=== PATIENT | male | born 1975 | race Caucasian/White ===

== ENCOUNTER 2016-08-15 21:15 | Emergency (ER) | payer OTHER ==
[2016-08-15 21:30] VITALS: BP 147/79; PULSE 67; TEMP 98.2; BMI 24.3
--- NOTE | 2016-08-15 23:14 | PDOC ---
History of Present Illness - General Chief Complaint: Injury Stated Complaint: CUT LEFT FINGER WITH HEDGETRIPPER Time Seen by Provider: 08/15/16 21:22 - History of Present Illness Initial Comments: This otherwise healthy 40-year-old man presents with an injury to his left index finger. Just prior to presentation, the patient accidentally cut the tip of his left index finger with electric cargo trimmer. Patient states that he cleansed the wound with material in first aid kit at home. Bleeding was controlled with direct pressure against the wound. No other injury sustained. Patient states that his last tetanus prophylaxis was greater than 20 years ago. Patient has no previous history of poor wound healing or resistant organism colonization/infection. Patient has ALLERGY to amoxicillin: He states that this occurred while using on child and believes that he had a rash Past History - Past Medical History Allergies/Adverse Reactions: Allergies Allergy/AdvReac Type Severity Reaction Status Date / Time amoxicillin Allergy Verified 08/15/16 21:17 Home Medications: Ambulatory Orders Cephalexin Monohydrate [Keflex -] 500 mg PO Q6H #20 capsule 08/15/16 Other medical history: DENIES - Immunization History Immunization Up to Date: No - Psycho/Social/Smoking Cessation Hx Anxiety: No Suicidal Ideation: No Smoking History: Never smoked Have you smoked in the past 12 months: No Information on smoking cessation initiated: No Hx Alcohol Use: No Drug/Substance Use Hx: No Substance Use Type: None Review of Systems - Review of Systems Able to Perform ROS?: Yes Comments:: 12 point review of systems is negative except for what is noted in the history of present illness *Physical Exam - Vital Signs Last Vital Signs Temp Pulse Resp BP Pulse Ox 98.2 F 67 16 147/79 100 08/15/16 21:19 08/15/16 21:19 08/15/16 21:19 08/15/16 21:19 08/15/16 21:19 - Physical Exam Comments: GENERAL: Adult male, alert and oriented 3 in no acute distress . EXTREMITIES: Left index finger1.5 cm full-thickness curvilinear laceration extending from the proximal radial aspect of nail to mid palmar phalanx No nail involvement present; laceration is not bleeding currently fingertip is warm and dry with excellent capillary refill; motor and sensory functioning and digit is intact Remainder of the extremity exam is normal NEUROLOGICAL: Cranial nerves II through XII grossly intact. Normal speech. No focal neurologic deficits MUSCULOSKELETAL: Back non-tender to palpation, no CVA tenderness SKIN: Warm, Dry, normal turgor, no rashes noted. Procedures - Laceration/Wound Repair Left Distal 2nd digit Wound Length: to 2.5 cm Wound Explored: clean Wound's Depth, Shape: flap Irrigated w/ Saline: Yes Betadine Prep: No (Hibiclens/) Anesthesia: 1% Lidocaine (ethanol) Amount of Anesthetic (ccs): 1 Wound Debrided: none Wound Repaired With: Sutures Suture Size/Type: 5:0 Number of Deep Layer Sutures: 5 Sterile Dressing Applied: Yes Splint Applied: No Sling Applied: No Progress: Distal phalanx of the left index finger prepped using Hibiclens/ethanol. 1 mL of 1% lidocaine infiltrated into the wound for local anesthesia. Wound irrigated with 60 mL of sterile normal saline. Wound closed with close approximation of the wound edges using 5 interrupted sutures of 5-0 nylon. Bacitracin and dry sterile dressing, followed by tube dressing applied. Patient tolerates procedure well Medical Decision Making - Medical Decision Making 40-year-old man with history of left index finger laceration from electric cargo trimmer repaired as noted above. Boostrix tetanus immunization provided. The patient will be away from the 13 through the of this month. Timing of suture removal discussed with the patient. Although optimal time for removal of the sutures would be in approximately 7 days, the patient would prefer to come back here when he returns home on the of this month. This will be approximately 10 days after wound repair. Patient has been advised to keep Bacitracin or Neosporin ointment on the wound until suture removal. *DC/Admit/Observation/Transfer Diagnosis at time of Disposition: Laceration of left index finger Qualifiers: Encounter type: initial encounter Damage to nail status: without damage Foreign body presence: without foreign body Qualified Code(s): S61.211A - Laceration without foreign body of left index finger without damage to nail, initial encounter - Discharge Dispostion Disposition: HOME Condition at time of disposition: Stable - Prescriptions Prescriptions: Cephalexin Monohydrate [Keflex -] 500 mg PO Q6H #20 capsule - Patient Instructions Printed Discharge Instructions: How to Care for a Laceration After Repair Additional Instructions: Keep original dressing in place as dry as possible for 2 days After 2 days, Band-Aid during day/open at night Keflex 500 mg 4 times a day for the next 5 days Return or see your doctor if area becomes red, swollen, painful Have sutures removed on August 26
[2016-08-15] MEDS ORDERED: DIPHTH,PERTUSS(ACELL),TET 0.5 ML DISP.SYRIN IM ONE (23:17)
== END 2016-08-15 23:25 | disposition home or self-care (01) ==
LOC: FER 21:15
PROC: 0HQGXZZ Repair Left Hand Skin, External Approach (ICD-10-PCS; principal; 2016-08-15)
DX: S61.211A Laceration without foreign body of left index finger without damage to nail, initial encounter (principal); W29.3XXA Contact with powered garden and outdoor hand tools and machinery, initial encounter; Y93.H2 Activity, gardening and landscaping; Y92.9 Unspecified place or not applicable
CPT/HCPCS: 90715; 99281-25